=== PATIENT | male | born 1940 | race African-American/Black ===

== ENCOUNTER 2024-02-22 12:52 | Emergency (ER) | payer BC ==
[2024-02-22 13:44] LABS: Absolute Basophils 0.1 K/uL (0-0.5); Absolute Eosinophils 0.3 K/uL (0-0.5); Absolute Lymphocytes (CBC) 1.7 K/uL (0.7-4.9); Absolute Monocytes 0.7 K/uL (0.1-1.3); Absolute Neutrophil 4.7 K/uL (1.8-8.0); Basophils % 0.9 % (0-1.3); Eosinophils % 3.5 % (0-4.4); Hematocrit 41.5 % (39.6-49.0); Hemoglobin 13.3 g/dL (13.6-17.9); Lymphocytes % 22.5 % (15.3-44.8); MCH 27.9 pg (27.0-35.0); MCHC 32.2 g/dL (32.0-36.0); MCV 86.7 fL (80-100); MPV 9.1 fL (7.6-11.3); Monocytes % 9.7 % (3.3-12.3); Neutrophils % 63.4 % (41.7-73.7); Nucleated Red Blood Cells % 0.1 % (0-0); Platelets 274 thou/uL (152-406); RBC Red Blood Cell Count 4.78 M/uL (4.33-5.43); Red Cell Distribution Width 13.9 % (12.1-15.2)
[2024-02-22 13:46] LABS: PT Prothrombin Time 13.5 SECONDS (9.4-12.5); Protime INR 1.21
[2024-02-22 14:06] LABS: Albumin 3.4 g/dL (3.4-5.0); Albumin/Globulin Ratio 0.9 (1.1-1.8); Anion Gap 8.1 mEq/L (5.0-15.0); Bilirubin Direct 0.3 mg/dL (0-0.2); Bilirubin Indirect, Calculated 0.6 mg/dL (0.2-0.8); Bilirubin Total 0.9 mg/dL (0.2-1.0); Globulin 3.9 g/dL (2.3-3.5); Magnesium 1.6 mg/dL (1.6-2.4); Potassium 4.1 mEq/L (3.5-5.1); Protein, Total 7.3 g/dL (6.4-8.2)
[2024-02-22 14:08] LABS: Troponin High Sensitivity 346.1 pg/mL (<58.9)
--- NOTE | 2024-02-22 14:13 | RAD REPORT ---
EXAMINATION: CT HEAD WITHOUT CONTRAST CT CERVICAL SPINE WITHOUT CONTRAST CLINICAL INDICATION: Head and neck injury status post fall. Head and neck pain TECHNIQUE: Axial CT images from the skull base to the vertex without intravenous contrast. Axial CT i mages through the cervical spine were obtained without intravenous contrast. Sagittal and coronal reformatted images were created from the data set. Coronal and sagittal reformatted images were creat ed from the data set. One or more of the following dose reduction techniques were used: Automated exposure control, adjustment of the mA and/or kV according to patient size, and/or iterative reconstr uction. Unless otherwise specified, incidental findings do not require dedicated imaging follow-up. [id number]. Comparison: none FINDINGS: An intracranial bleed is not seen. Ventricles are normal in caliber. 1.6 cm low-density area right thalamus. No extra-axial fluid collection. No fluid within the sinuses/mastoids Images are degraded by patient motion artifact. No gross cervical fracture seen. No dislocation. Loss of the normal lordosis of the cervical spine may be secondary to muscle spasm. IMPRESSION: 1.6 cm low-density area right thalamus consistent with lacunar infarction. The age is indeterminate. MRI brain may be helpful further evaluation. Limited evaluation cervical spine without visualization of a gross fracture..
[2024-02-22] MEDS ORDERED: FOLIC ACID 5 MG/ML VIAL ONE (14:19)
[2024-02-22 14:22] LABS: Specific Gravity 1.019 (1.005-1.030); Urine Bilirubin NEGATIVE (Negative); Urine Blood Negative (Negative); Urine Clarity Clear (Clear); Urine Color Light-Yellow (Yellow); Urine Glucose NEGATIVE (Negative); Urine Ketones NEGATIVE (Negative); Urine Microscopic Reflex YN NO UMIC; Urine Nitrite NEGATIVE (Negative); Urine Protein NEGATIVE (Negative); Urine Urobilinogen Normal (Normal)
[2024-02-22 14:24] LABS: SARS-CoV-2 Antigen CONTROL BLUE LINE VIS/BG OK; SARS-CoV-2 Antigen Rapid Res Negative (Negative)
--- NOTE | 2024-02-22 14:26 | RAD REPORT ---
EXAM: CT CHEST, ABDOMEN AND PELVIS WITHOUT CONTRAST CLINICAL INDICATION: Chest and abdominal pain status post fall TECHNIQUE: CT chest, abdomen and pelvis was performed, without IV contrast, as per department protoco l. Axial, sagittal and coronal reconstructions were obtained. One or more of the following dose reduction techniques were used: Automated exposure control, adjustment of the mA and/or kV according to the patient size, and/or iterative reconstruction. Unless otherwise specified, incidental findings do not require dedicated imaging follow-up. The lack of IV and oral contrast limits evaluation of the mediastinum, parrish, vessels, organs and jarred l. COMPARISON: None FINDINGS: A pulmonary contusion is not seen. No mediastinal hematoma. The heart is markedly enlarged. No mediastinal or hilar lymphadenopathy seen. No pleural effusion. No pericardial effusion. Liver, spleen, pancreas, adrenals kidneys and bladder do not demonstrate a traumatic injury. Small renal hernias. Large right hydrocele. There is no evidence of diverticulitis. Normal appendix Old fractures right transverse processes lumbar spine. Left renal cysts. IMPRESSION: No acute traumatic injury chest, abdomen/pelvis seen. Large right hydrocele
--- NOTE | 2024-02-22 14:34 | RAD REPORT ---
EXAMINATION: CTA HEAD CLINICAL INDICATION: Aphasia TECHNIQUE: Axial CT images were obtained through the head after 100 cc Isovue-370 intravenous contras t utilizing angiographic protocol with 3D post-processing (maximum intensity projection images, volume rendered images and/or shaded surface rendered images). One or more of the following dose red uction techniques were used: Automated exposure control, adjustment of the mA and/or kV according to patient size, and/or iterative reconstruction. Unless otherwise specified, incidental findings do not require dedicated imaging follow-up. COMPARISON: None FINDINGS: 4 mm filling defect distal basilar artery. Distal internal carotid, anterior cerebral, middle cerebral and posterior cerebral arteries do not. d emonstrate a significant stenosis. 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 This could be acute or chronic.
--- NOTE | 2024-02-22 14:41 | RAD REPORT ---
EXAMINATION: Neck Angio CLINICAL INDICATION: Ataxia TECHNIQUE: Axial CT images were obtained from the aortic arch to the skull base after intravenous adm inistration of 100 cc Isovue-370 utilizing angiographic protocol. Multiplanar reformats, as well as 3D post-processing (maximum intensity projection images, volume rendered images and/or shaded surface rendered images) were generated and reviewed. One or more of the following dose reduction techniques were used: Automated exposure control, adjustment of the mA and/or kV according to patient size, and/or iterative reconstruction. Unless otherwise specified, incidental findings do not require dedicated imaging follow-up. COMPARISON: No prior exam. FINDINGS: The visualized aortic arch and great vessels do not demonstrate a significant abnormality Marked calcified and noncalcified plaque proximal right internal carotid artery. Mild plaque within the remainder of the common, internal and external carotid arteries. Distal left vertebral artery is not opacified. Moderate narrowing distal right vertebral artery. Methods for NASCET criteria: Mild stenosis, 0% to 49%; Moderate stenosis 50% to 69%; Severe stenosis, 70% to 99% IMPRESSION: Marked plaque right proximal internal carotid artery appears to result in an approximately 70% stenos is. Nonvisualization distal left vertebral artery. This could be acute or chronic Moderate narrowing distal right vertebral artery
--- NOTE | 2024-02-22 14:46 | RAD REPORT ---
Procedure: Chest Single View HISTORY: Cough COMPARISON: none FINDINGS: The lungs appear clear of acute infiltrate. Pulmonary vascular congestion is present. No significant pleural effusion noted. The heart is markedly enlarged.
--- NOTE | 2024-02-22 15:13 | EDPHYS ---
Physician Documentation [facility] Name: Jcarlos Matos Age: 83 yrs Sex: Male : 1940 Arrival Date: 02/22/2024 Time: 12:52 Bed 8 Private MD: ED Physician José Miguel Mix HPI: 02/21 14:52 This 83 yrs old Black Male presents to ER via Wheelchair with complaints of Weakness, chalo Altered Mental Status, Shortness Of Breath. 14:52 This 83 yrs old Black Male presents to ER via Wheelchair with complaints of Weakness, chalo Altered Mental Status, Shortness Of Breath. 14:52 The patient presents to the emergency department with weakness of the left upper chalo extremity, a speech or higher order brain function problem, aphasia, that is moderate. Onset: The symptoms/episode began/occurred this morning. Context: occurred at home, occurred while the patient was doing normal activity. Associated signs and symptoms: Pertinent positives: dizziness, weakness. Severity of symptoms: At their worst the symptoms were moderate in the emergency department the symptoms are unchanged. Patient's baseline: Neuro: alert and fully oriented, orientated to person, place, time. Current symptoms: dysphasia, paralysis or paresis, of the left arm, that is mild. It is unknown whether or not the patient has had similar symptoms in the past. Historical: - Allergies: 13:39 No Known Allergies; cm10 - Home Meds: 13:39 losartan oral [Active]; Metformin Oral [Active]; cm10 - PMHx: 13:39 Hypertensive disorder; Pre-diabetic; cm10 - Immunization history:: Adult Immunizations up to date. - Infectious Disease History:: Denies. - Social history:: Smoking status: Patient denies any tobacco usage or history of. - Family history:: not pertinent. ROS: 14:52 Constitutional: Negative for fever, chills, and weight loss, Eyes: Negative for injury, chalo pain, redness, and discharge, ENT: Negative for injury, pain, and discharge, Neck: Negative for injury, pain, and swelling, Cardiovascular: Negative for chest pain, palpitations, and edema, Respiratory: Negative for shortness of breath, cough, wheezing, and pleuritic chest pain, Abdomen/GI: Negative for abdominal pain, nausea, vomiting, diarrhea, and constipation, Back: Negative for injury and pain, : Negative for injury, bleeding, discharge, and swelling, MS/Extremity: Negative for injury and deformity, Skin: Negative for injury, rash, and discoloration, Psych: Negative for depression, anxiety, suicide ideation, homicidal ideation, and hallucinations, Allergy/Immunology: Negative for hives, rash, and allergies, Endocrine: Negative for neck swelling, polydipsia, polyuria, polyphagia, and marked weight changes, Hematologic/Lymphatic: Negative for swollen nodes, abnormal bleeding, and unusual bruising, 14:52 Neuro: Positive for altered mental status, speech changes, weakness, of the left arm, Exam: 14:52 Constitutional: This is a well developed, well nourished patient who is awake, alert, chalo and in no acute distress. Eyes: Pupils equal round and reactive to light, extra-ocular motions intact. Lids and lashes normal. Conjunctiva and sclera are non-icteric and not injected. Cornea within normal limits. Periorbital areas with no swelling, redness, or edema. ENT: Nares patent. No nasal discharge, no septal abnormalities noted. Tympanic membranes are normal and external auditory canals are clear. Oropharynx with no redness, swelling, or masses, exudates, or evidence of obstruction, uvula midline. Mucous membranes moist. Neck: Trachea midline, no thyromegaly or masses palpated, and no cervical lymphadenopathy. Supple, full range of motion without nuchal rigidity, or vertebral point tenderness. No Meningismus. Chest/axilla: Normal chest wall appearance and motion. Nontender with no deformity. No lesions are appreciated. Cardiovascular: Regular rate and rhythm with a normal S1 and S2. No gallops, murmurs, or rubs. Normal PMI, no JVD. No pulse deficits. Respiratory: Lungs have equal breath sounds bilaterally, clear to auscultation and percussion. No rales, rhonchi or wheezes noted. No increased work of breathing, no retractions or nasal flaring. Abdomen/GI: Soft, non-tender, with normal bowel sounds. No distension or tympany. No guarding or rebound. No evidence of tenderness throughout. Back: No spinal tenderness. No costovertebral tenderness. Full range of motion. Male : Normal genitalia with no discharge or lesions. Skin: Warm, dry with normal turgor. Normal color with no rashes, no lesions, and no evidence of cellulitis. Psych: Awake, alert, with orientation to person, place and time. Behavior, mood, and affect are within normal limits. 14:52 Head/face: Noted is LEFT FACE WEAK, MILD. 15:13 ECG was reviewed by the Attending Physician. [facility] Vital Signs: 13:37 BP 150 / 70; Pulse 77; Resp 16; Pulse Ox 100% on R/A; Weight 105.23 kg; Height 6 ft. 1 cm10 in. ; Pain 0/10; 13:53 BP 163 / 94; Pulse 80; Resp 17; Pulse Ox 99% on R/A; cm10 14:24 Temp 97.4(TE); cm10 14:30 BP 145 / 68; Pulse 64; Resp 16; Pulse Ox 97% on R/A; cm10 15:00 BP 137 / 83; Pulse 69; Resp 20; Pulse Ox 99% on R/A; cm10 15:30 BP 147 / 94; Pulse 73; Resp 18; Pulse Ox 99% on R/A; cm10 13:37 Body Mass Index 30.61 (105.23 kg, 185.42 cm) cm10 13:37 Pain Scale: Adult cm10 NIH Stroke Scale Scores: 13:43 NIHSS Score: 3 cm10 MDM: 13:21 Medical Screening Exam initiated [facility] 15:00 Data reviewed: vital signs, nurses notes, EMS record, lab test result(s), EKG, [facility] radiologic studies, CT scan, ultrasound. Consideration of Admission/Observation Patient was admitted/placed on observation. Escalation of care including admission/observation considered. I considered the following discharge prescriptions or medication management in the emergency department Medications were administered in the Emergency Department. See MAR. Independent interpretation of the following test(s) in the Emergency Department EKG: See my EKG interpretation above. Test considered but Not performed: MRI: NO MRI BRAIN. 02/21 13:22 Order name: Basic Metabolic Panel; Complete Time: 14:43 [facility] 02/21 13:22 Order name: CBC with Diff; Complete Time: 14:43 [facility] 02/21 13:22 Order name: LFT's; Complete Time: 14:43 [facility] 02/21 13:22 Order name: Magnesium; Complete Time: 14:43 [facility] 02/21 13:22 Order name: NT PRO-BNP; Complete Time: 14:43 [facility] 02/21 13:22 Order name: PT-INR; Complete Time: 14:43 [facility] / 13:22 Order name: Troponin HS; Complete Time: 14:43 [facility] 02/21 13:22 Order name: Blood Culture Adult (2) [facility] 02/21 13:22 Order name: Lipase; Complete Time: 14:43 [facility] 02/21 13:22 Order name: Urinalysis w/ reflexes; Complete Time: 14:43 [facility] 02/21 13:22 Order name: Lactate w/ 2H reflex if indic.; Complete Time: 14:43 [facility] 02/21 13:22 Order name: Flu; Complete Time: 14:43 [facility] 02/21 13:22 Order name: SARS RAPID; Complete Time: 14:43 [facility] 02/21 13:23 Order name: AMMONIA; Complete Time: 14:43 [facility] 02/21 14:37 Order name: CPK; Complete Time: 15:02 cm10 02/21 13:22 Order name: XRAY Chest (1 view); Complete Time: 15:02 [facility] 02/21 13:27 Order name: Head C Spine Mpr Wo Con; Complete Time: 14:43 EDMS 02/21 13:28 Order name: Chest Abd Pelvis Wo Con; Complete Time: 14:43 EDMS 04 13:34 Order name: CT Head Angio; Complete Time: 14:43 [facility] 02/21 13:34 Order name: CT Neck Angio; Complete Time: 14:43 [facility] 02/21 13:22 Order name: EKG; Complete Time: 13:23 [facility] 02/21 13:22 Order name: Cardiac monitoring; Complete Time: 13:37 [facility] 02/21 13:22 Order name: EKG - Nurse/Tech; Complete Time: 13:37 [facility] 02/21 13:22 Order name: IV Saline Lock; Complete Time: 13:37 [facility] 02/21 13:22 Order name: Labs collected and sent; Complete Time: 13:37 [facility] 02/21 13:22 Order name: O2 Per Protocol; Complete Time: 13:36 [facility] 02/21 13:22 Order name: O2 Sat Monitoring; Complete Time: 13:36 [facility] EC:13 Rate is 69 beats/min. Rhythm is regular. QRS [place] is Normal. AR interval is normal. QRS chalo interval is normal. QT interval is normal. No Q waves. T waves are Normal. No ST changes noted. Clinical impression: NSR w/ Non-specific ST/T Changes and No evidence of ischemia. Interpreted by me. Reviewed by me. Administered Medications: 14:24 Drug: NS 0.9% IV 1000 ml IV at 1000 ml once; to be given as a bolus over 60 minutes cm10 Route: IV; Rate: 1000 ml; Site: right antecubital; 15:45 Follow up: Response: No adverse reaction; IV Status: Completed infusion; IV Intake: cm10 500ml 14:24 Drug: foLIC Acid IVPB 1 mg IVPB once Route: IVPB; Site: right antecubital; cm10 14:25 Follow up: Response: No adverse reaction; IV Status: Completed infusion; IV Intake: cm10 0.2ml 15:21 Not Given (Physician Discretion): [email or web address] grams IV at per protocol once; Given slow cm10 IV push per pharmacy instructions 15:21 Not Given (Other Intervention Used): aspirinsuppository 300 mg AR once cm10 15:45 Drug: Clopidogrel PO 75 mg PO once Route: PO; cm10 15:58 Follow up: Response: No adverse reaction cm10 15:45 Drug: Aspirin PO Chewable Tablet 324 mg PO once; 81 mg tablets x 4 Route: PO; cm10 15:58 Follow up: Response: No adverse reaction cm10 Disposition Summary: 02/22/24 15:12 Transfer Ordered Notes: Transfer Location: 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 Dysarthria (speech clarity - read or repeat words) - 0(Normal) 11. Extinction and Inattention (visual/tactile/auditory/spatial/personal) - 0(No abnormality) 1a. Level of Consciousness (LOC) - 0(Alert) 1b. Level of Consciousness (LOC) (Month \T\ Age) - 0(Both) 1c. LOC Commands (Open \T\ Closes Eyes/Bulldozer Mechanic) - 0(Both) 2. Best Gaze (Lateral Gaze Paresis) - 0(Normal) 3. Visual Field Loss - 0(No visual loss) 4. Facial Palsy - 1(Minor Paralysis) 5a. Left Arm: Motor (10-second hold) - 1(Drift) 5b. Right Arm: Motor (10-second hold) - 0(No drift) 6a. Left Leg: Motor (5-second hold - always test supine) - 1(Drift) 6b. Right Leg: Motor (5-second hold - always test supine) - 0(No drift) 7. Limb Ataxia (finger/nose \T\ heel/mclaughlin - test with eyes open) - 0(Absent) 8. Sensory Loss (pinprick arms/legs/face) - 0(Normal) 9. Best Language: Aphasia (description/naming/reading) - 0(No aphasia) Initials: cm10 Signatures: Dispatcher [employer] EDMS José Miguel Mix MD MD cha Martinez, Clarissa, RN RN cm10 Corrections: (The following items were deleted from the chart) 13:23 13:23 BASIC METABOLIC PANEL+C.LAB.BRZ ordered. EDMS EDMS 13:23 13:23 CBC+H.LAB.BRZ ordered. EDMS EDMS 13:23 13:23 HEPATIC FUNCTION+C.LAB.BRZ ordered. EDMS EDMS 13:23 13:23 MAGNESIUM+C.LAB.BRZ ordered. EDMS EDMS 13:23 13:23 PROBNP+C.LAB.BRZ ordered. EDMS EDMS 13:23 13:23 PROTIME (+INR)+COAG.LAB.BRZ ordered. EDMS EDMS 13:23 13:23 Troponin High Sensitivity+C.LAB.BRZ ordered. EDMS EDMS 13:23 13:23 BLOOD CULTURE*+BA.LAB.BRZ ordered. EDMS EDMS 13:23 13:23 LIPASE+C.LAB.BRZ ordered. EDMS EDMS 13:23 13:23 Urinalysis+U.LAB.BRZ ordered. EDMS EDMS 13:23 13:23 LACTATE+C.LAB.BRZ ordered. EDMS EDMS 13:23 13:23 Influenza Screen (A \T\ B)+BA.LAB.BRZ ordered. EDMS EDMS : 13:23 SARS-COV-2 Antigen Rapid+I.LAB.BRZ ordered. EDMS EDMS : 13:23 Head C Spine Cap Wo Con+CT.RAD.BRZ ordered. EDMS EDMS 15:58 15:12 TO [facility] cm10
--- NOTE | 2024-02-22 15:13 | ER ---
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 Pt was also found incontinent. Last seen normal yesterday at 1200. Coronavirus screen: Client denies travel out of the [place] in the last 14 days. Ebola Screen: Patient denies travel to an Ebola-affected area in the 21 days before illness onset. No symptoms or risks identified at this time. Initial Sepsis Screen: Does the patient meet any 2 criteria? No. Patient's initial sepsis screen is negative. Does the patient have a suspected source of infection? No. Patient's initial sepsis screen is negative. Risk Assessment: Do you want to hurt yourself or someone else? Patient reports no desire to harm self or others. Onset of symptoms was February 22, 2024. 13:37 Method Of Arrival: Wheelchair cm10 13:37 Acuity: BAUTISTA 2 cm10 Triage Assessment: 13:42 The onset of the patients symptoms was at an unknown time. General: Appears in no cm10 apparent distress. comfortable, Behavior is calm, cooperative. Pain: Denies pain. Neuro: No deficits noted. Level of Consciousness is awake, alert, Oriented to person, place, time, situation, Appropriate for age Weakness in left hand(s) arm(s) leg(s) Facial droop on left. Neuro: Reports. Respiratory: No deficits noted. Airway is patent Respiratory effort is even, unlabored, Respiratory pattern is regular, symmetrical. Historical: - Allergies: 13:39 No Known Allergies; cm10 - Home Meds: 13:39 losartan oral [Active]; Metformin Oral [Active]; cm10 - PMHx: 13:39 Hypertensive disorder; Pre-diabetic; cm10 - Immunization history:: Adult Immunizations up to date. - Infectious Disease History:: Denies. - Social history:: Smoking status: Patient denies any tobacco usage or history of. - Family history:: not pertinent. Screenin:43 [facility] ED Fall Risk Assessment (Adult) History of falling in the last 3 months, cm10 including since admission Yes- physiologic fall (2 pts) Confusion or Disorientation Yes (5 pts) Intoxicated or Sedated No (0 pts) Impaired Gait Yes (1 pt) Mobility Assist Device Used Yes (1 pt) Altered Elimination Yes (1 pt) Score/Fall Risk Level 3 or more points = High Risk Oriented to surroundings, Maintained a safe environment, Hourly rounding (assess needs \\T\\ fall precautionary measures) done. Abuse screen: Denies threats or abuse. Denies injuries from another. Nutritional screening: No deficits noted. Tuberculosis screening: No symptoms or risk factors identified. 15:28 [place] Swallow Protocol Exclusion Criteria: Unable to remain alert for testing: No NPO cm10 for medical/surgical reason by provider order No Head-of-bed restricted <30 degrees Tracheostomy tube present No No thin liquids due to preexisting dysphagia/baseline modified diet thickened liquids No Exclusion Criteria Result: Proceed Brief Cognitive Screen What is your name? Normal, Where are you right now? Normal, What year is it? Normal. Oral Mechanism Examination Facial Symmetry: Normal, Motion: Normal, Lip Closure: Normal, Oral Mechanism Result: Normal. 3 oz Water Swallow Challenge: Pt able to drink all water without stopping, coughing, choking or throat clearing: Yes Result: PASS. Assessment: 15:29 Reassessment: Patient appears in no apparent distress at this time. Patient and/or cm10 family updated on plan of care and expected duration. Pain level reassessed. Patient is alert, oriented x 3, equal unlabored respirations, skin warm/dry/pink. Vital Signs: 13:37 BP 150 / 70; Pulse 77; Resp 16; Pulse Ox 100% on R/A; Weight 105.23 kg; Height 6 ft. 1 cm10 in. ; Pain 0/10; 13:53 BP 163 / 94; Pulse 80; Resp 17; Pulse Ox 99% on R/A; cm10 14:24 Temp 97.4(TE); cm10 14:30 BP 145 / 68; Pulse 64; Resp 16; Pulse Ox 97% on R/A; cm10 15:00 BP 137 / 83; Pulse 69; Resp 20; Pulse Ox 99% on R/A; cm10 15:30 BP 147 / 94; Pulse 73; Resp 18; Pulse Ox 99% on R/A; cm10 13:37 Body Mass Index 30.61 (105.23 kg, 185.42 cm) cm10 13:37 Pain Scale: Adult cm10 NIH Stroke Scale Scores: 13:43 NIHSS Score: 3 cm10 ED Course: 12:58 Patient arrived in ED. al6 13:20 José Miguel Mix MD is Attending Physician. chalo 13:30 Inserted saline lock: 18 gauge in right antecubital area, using aseptic technique. cm10 Blood collected. Flushed with 10 mL NS. 13:30 Initial lab(s) drawn, by me, sent to lab. First set of blood cultures drawn by me, EKG cm10 done, by ED staff, reviewed by José Miguel Mix MD. 13:36 Deja Huerta, RN is Primary Nurse. cm10 13:37 SARS RAPID Sent. cm10 13:37 Flu Sent. cm10 13:37 Lactate w/ 2H reflex if indic. Sent. cm10 13:37 Urinalysis w/ reflexes Sent. cm10 13:37 Lipase Sent. cm10 13:37 Basic Metabolic Panel Sent. cm10 13:37 CBC with Diff Sent. cm10 13:37 LFT's Sent. cm10 13:37 Magnesium Sent. cm10 13:37 NT PRO-BNP Sent. cm10 13:37 PT-INR Sent. cm10 13:37 Troponin HS Sent. cm10 13:37 AMMONIA Sent. cm10 13:39 Triage completed. cm10 13:41 Arm band placed on right wrist. Patient placed in an exam room, on a stretcher, on cm10 laboratory monitor, on pulse oximetry. 13:44 Patient has correct armband on for positive identification. Placed in gown. Bed in low cm10 position. Call light in reach. Side rails up X2. Provided Education on: ER process and procedures.. Client placed on continuous cardiac and pulse oximetry monitoring. NIBP monitoring applied. hospital monitor on. 14:01 Head C Spine Mpr Wo Con In Process Unspecified. EDMS 14:01 Chest Abd Pelvis Wo Con In Process Unspecified. EDMS 14:02 CT Head Angio In Process Unspecified. EDMS 14:02 CT Neck Angio In Process Unspecified. EDMS 14:03 XRAY Chest (1 view) In Process Unspecified. EDMS 14:38 CPK Sent. cm10 15:26 Report given to RACHEL Gaytan at [facility] ER. cm10 15:56 No provider procedures requiring assistance completed. Patient transferred, IV remains cm10 in place. 15:56 Report given to report given to Arthur with [facility] who assumes care of cm10 patient. Pt stable for transfer at this time. Administered Medications: 14:24 Drug: NS 0.9% IV 1000 ml IV at 1000 ml once; to be given as a bolus over 60 minutes cm10 Route: IV; Rate: 1000 ml; Site: right antecubital; 15:45 Follow up: Response: No adverse reaction; IV Status: Completed infusion; IV Intake: cm10 500ml 14:24 Drug: foLIC Acid IVPB 1 mg IVPB once Route: IVPB; Site: right antecubital; cm10 14:25 Follow up: Response: No adverse reaction; IV Status: Completed infusion; IV Intake: cm10 0.2ml 15:21 Not Given (Physician Discretion): [email or web address] grams IV at per protocol once; Given slow cm10 IV push per pharmacy instructions 15:21 Not Given (Other Intervention Used): aspirinsuppository 300 mg GA once cm10 15:45 Drug: Clopidogrel PO 75 mg PO once Route: PO; cm10 15:58 Follow up: Response: No adverse reaction cm10 15:45 Drug: Aspirin PO Chewable Tablet 324 mg PO once; 81 mg tablets x 4 Route: PO; cm10 15:58 Follow up: Response: No adverse reaction cm10 Medication: 13:43 VIS not applicable for this client. cm10 Intake: 14:25 IV: 0ml; Total: 0ml. cm10 15:45 IV: 500ml; Total: 500ml. cm10 Outcome: 15:12 ER care complete, transfer ordered by MD. isabel 15:57 Transferred by [facility] to [facility], Transfer form cm10 completed. 15:57 Condition: stable 15:57 Instructed on the need for transfer, 15:58 Patient left the ED. cm10 NIH Stroke Scale - NIH Stroke Score Date: 02/22/2024 Time: 13:43 Total Score = 3 10. Dysarthria (speech clarity - read or repeat words) - 0(Normal) 11. Extinction and Inattention (visual/tactile/auditory/spatial/personal) - 0(No abnormality) 1a. Level of Consciousness (LOC) - 0(Alert) 1b. Level of Consciousness (LOC) (Month \\T\\ Age) - 0(Both) 1c. LOC Commands (Open \\T\\ Closes Eyes/Solar Development Engineer) - 0(Both) 2. Best Gaze (Lateral Gaze Paresis) - 0(Normal) 3. Visual Field Loss - 0(No visual loss) 4. Facial Palsy - 1(Minor Paralysis) 5a. Left Arm: Motor (10-second hold) - 1(Drift) 5b. Right Arm: Motor (10-second hold) - 0(No drift) 6a. Left Leg: Motor (5-second hold - always test supine) - 1(Drift) 6b. Right Leg: Motor (5-second hold - always test supine) - 0(No drift) 7. Limb Ataxia (finger/nose \\T\\ heel/mclaughlin - test with eyes open) - 0(Absent) 8. Sensory Loss (pinprick arms/legs/face) - 0(Normal) 9. Best Language: Aphasia (description/naming/reading) - 0(No aphasia) Initials: cm10 Signatures: Dispatcher [employer] José Miguel Damian MD MD cha Martinez, Clarissa, RN RN cm10 Hermila [email or web address]
[2024-02-22] MEDS ORDERED: CLOPIDOGREL 75 MG TABLET ONE (15:33)
[2024-02-22] MEDS ORDERED: ASPIRIN 81 MG CHEWABLE TABLET ONE (15:33)
[2024-02-22 20:49] VITALS: TEMP 97.4
[2024-02-22 20:51] VITALS: O2SAT 99
[2024-02-22 20:52] VITALS: BP 147/94
== END 2024-02-22 15:58 | disposition short-term general hospital (02) ==
LOC: ER 12:52
DX: I63.02 Cerebral infarction due to thrombosis of basilar artery (principal); I63.231 Cerebral infarction due to unspecified occlusion or stenosis of right carotid arteries; I63.541 Cerebral infarction due to unspecified occlusion or stenosis of right cerebellar artery; R29.703 NIHSS score 3; I10 Essential (primary) hypertension; R73.03 Prediabetes; Z11.52 Encounter for screening for COVID-19
CPT/HCPCS: 96361; 87040 ×2; 85025; 80048; 36415; 82140; 83735; 82550; 85610; 82565; 80076; 83605; 81003; 84484; 83690; 83880; 87804 ×2; 70450; 71250; 72125; 70496; 70498; 74176; 71045; 96374; 99285; 87811; Q9967